=== PATIENT | female | born 1970 | race Caucasian/White ===

== ENCOUNTER 2018-03-03 14:13 | Emergency (ER) | payer MEDICAID ==
[~2018-03-03] VITALS: Ht 165.1 cm; Wt 100.0 kg
[2018-03-03] MEDS ORDERED: ACETAMINOPHEN 500MG TABLET PO ONE (15:30)
[2018-03-03 17:00] VITALS: BP 140/72
== END 2018-03-03 17:04 | disposition home or self-care (01) ==
LOC: ER 14:13
DX: E11.621 Type 2 diabetes mellitus with foot ulcer (principal)
CPT/HCPCS: 73630; 81025; 82962; 99284